=== PATIENT | male | born 1960 | race American Indian/Alaskan Native ===

== ENCOUNTER → 2018-08-06 19:23 | Outpatient (REF) | payer OTHER, SELFPAY ==
[2018-08-06 19:44] LABS: Alanine Aminotransferase 51 IU/L (21-72); Albumin 4.5 g/dL (3.5-5.0); Albumin Globulin Ratio 1.7 (1.0-2.8); Alkaline Phosphatase 71 U/L (38-126); Aspartate Aminotransferase 32 IU/L (17-59); Bilirubin Total 0.5 mg/dL (0.2-1.3); Blood Urea Nitrogen 18 mg/dL (9-20); Calcium 9.2 mg/dL (8.4-10.2); Carbon Dioxide 29 mmol/L (22-32); Chloride 100 mmol/L (98-107); Cholesterol 128 mg/dL (140-199); Estimated Glomerular Filt Rate > 60.0 mL/min (>60); Globulin 2.6 g/dL (1.7-4.1); Glucose 107 mg/dL (70-100); HDL Cholesterol 29 mg/dL (40-60); HEMOLYSIS < 15 (0-50); LDL Cholesterol Calculated 64 mg/dL (<100); Potassium 4.1 mmol/L (3.4-5.1); Sodium 139 mmol/L (137-145); Total Protein 7.1 g/dL (6.3-8.2); Triglycerides 173 mg/dL (35-150)
[2018-08-06 19:46] LABS: Add Manual Diff / Slide Review NO; Basophils Absolute Auto 100 /uL (0-100); Basophils Percent Auto 0.7 % (0-2); Eosinophils Absolute Auto 200 /uL (0-450); Eosinophils Percent Auto 2.8 % (2-4); Hematocrit 46.4 % (41-53); Hemoglobin 15.6 g/dL (13.5-17.5); Lymphocytes Absolute Auto 2200 /uL (1100-4500); Mean Corpuscular HGB Conc 33.6 % (30-36); Mean Corpuscular Hemoglobin 29.7 PG (26-34); Mean Corpuscular Volume 88.6 fL (80-100); Monocytes Absolute Auto 600 /uL (0-900); Monocytes Percent Auto 7.7 % (3-14); Neutrophils Absolute Auto 5200 /uL (1500-7000); Neutrophils Percent Auto 62.8 % (50-75); Platelet Count 220 X10^3/uL (150-400); Red Blood Cell Count 5.24 X10^6/uL (4.5-5.9); Red Cell Distribution Width 14.9 % (11.6-14.8); White Blood Cell Count 8.3 X10^3/uL (4.5-11.0)
== END ==
LOC: LAB 19:23
PROVIDERS: Visit Provider Family Medicine Geriatric Medicine
DX: I10 Essential (primary) hypertension (principal); R73.01 Impaired fasting glucose
CPT/HCPCS: 36415; 80053; 80061; 83036; 85025

== ENCOUNTER 2018-10-19 07:36 | Day surgery (SDC) | payer OTHER, SELFPAY ==
[2018-10-19] VITALS (7 sets, daily range): BP systolic 100–126; BP diastolic 50–69; PULSE 47–61; RESP 12–20; TEMP 36.1–37.2; O2SAT 94–106; BMI 32.7
--- NOTE | 2018-10-19 | PATH_ITS ---
[facility] Accession Number: [id number] . 01 Material submitted: . body - POLYP AT 15 . 02 Diagnosis: Colon, Polyp at 15, Biopsy: Hyperplastic polyp. [facility]/10/20/2018 . 02 Electronically signed: . Mireya Galeana MD, Pathologist NPI- [id number] . 01 Gross description: . POLYP AT 15: Received in formalin are 4 fragment(s) of garibay, soft tissue measuring 0.1 x 0.1 x 0.1 cm to 0.4 x 0.3 x 0.3 cm which is entirely submitted and submitted entirely in 1 cassette(s) /DMC /DMC . 02 Pathologist provided ICD-10: K63.5 . 02 CPT . 388579 Performed at: 01 [facility] [address] [id number] MD Lambert Akins MD Phone: [phone] Performed at: 02 [facility] [address] [place], [place] [id number] MD Mireya Galeana MD Phone: [phone]
[2018-10-19] MEDS: SODIUM CHLORIDE 0.9% 1,000 ML 84 ML IV (08:31)
--- NOTE | 2018-10-19 09:53 | PM.HP.1 ---
History of Present Illness Date Patient Seen: 10/19/18 Time Patient Seen: 09:50 Chief complaint: [id number] SCREENING COLONOSCOPY Narrative: Patient is a gentleman here for screening colonoscopy. Last exam was 5 years ago. He had a polyp removed at that time. Patient History Medical History (Updated 10/19/18 @ 09:55 by Myles Waldrop MD) Coronary artery disease (Chronic) Elevated cholesterol (Chronic) Essential hypertension with goal blood pressure less than 130/85 (Chronic) Surgical History (Updated 10/19/18 @ 09:55 by Myles Waldrop MD) History of coronary artery stent placement (Resolved) Social History household members: none Family & Social History Social History: household members none Meds Home Medications Medication Instructions Recorded Confirmed Type atorvastatin [Lipitor] 80 mg PO QDAY #0 04/28/17 10/19/18 History omeprazole 20 mg PO QDAY #0 04/28/17 10/19/18 History lisinopril-hydrochlorothiazide 1 tab PO QDAY #0 05/04/17 10/19/18 History aspirin 81 mg PO BID #90 05/14/17 10/19/18 Rx hydrocodone-acetaminophen 1 - 2 tab PO Q4HPP PRN #90 tab 06/01/17 10/19/18 Rx metoprolol tartrate 25 mg PO DAILY 10/19/18 10/19/18 History Allergies Allergy/AdvReac Type Severity Reaction Status Date / Time No Known Drug Allergies Allergy Verified 10/19/18 08:34 Review of Systems Review of Systems All systems reviewed & are unremarkable except as noted in HPI and below Cardiovascular Comments: No cardiac symptoms at this time Musculoskeletal Comments: Back arthritis and bilateral knee replacements Exam Vital Signs (past 8 hours): - 10/19/18 08:15 Temperature 97.0 F L Pulse Rate 47 L Respiratory Rate 16 Blood Pressure 111/62 Pulse Oximetry 94 Oxygen Delivery Method Room Air Narrative Exam Narrative: Pleasant cooperative patient no apparent distress. Lungs are clear to auscultation. No rales or rhonchi. Heart regular rate and rhythm no murmur gallop. Abdomen is soft nontender without mass. No obvious hernias. Patient is alert and oriented x3. Assessment & Plan Assessment & Plan narrative: The patient for a screening colonoscopy. I have discussed the procedure with them. Risks of bleeding, perforation which would necessitate major operation, failure to find remove all lesions, the potential tattoo were all discussed. All questions were answered. They wished to proceed.
--- NOTE | 2018-10-19 09:56 | P.HP_ITS ---
History of Present Illness Date Patient Seen: 10/19/18 Time Patient Seen: 09:50 Chief complaint: [id number] SCREENING COLONOSCOPY Narrative: Patient is a gentleman here for screening colonoscopy. Last exam was 5 years ago. He had a polyp removed at that time. Patient History Medical History (Updated 10/19/18 @ 09:55 by Myles Waldrop MD) Coronary artery disease (Chronic) Elevated cholesterol (Chronic) Essential hypertension with goal blood pressure less than 130/85 (Chronic) Surgical History (Updated 10/19/18 @ 09:55 by yMles Waldrop MD) History of coronary artery stent placement (Resolved) Social History household members: none Family & Social History Social History: household members none Meds Home Medications Medication Instructions Recorded Confirmed Type atorvastatin [Lipitor] 80 mg PO QDAY #0 04/28/17 10/19/18 History omeprazole 20 mg PO QDAY #0 04/28/17 10/19/18 History lisinopril-hydrochlorothiazide 1 tab PO QDAY #0 05/04/17 10/19/18 History aspirin 81 mg PO BID #90 05/14/17 10/19/18 Rx hydrocodone-acetaminophen 1 - 2 tab PO Q4HPP PRN #90 tab 06/01/17 10/19/18 Rx metoprolol tartrate 25 mg PO DAILY 10/19/18 10/19/18 History Allergies Allergy/AdvReac Type Severity Reaction Status Date / Time No Known Drug Allergies Allergy Verified 10/19/18 08:34 Review of Systems Review of Systems All systems reviewed & are unremarkable except as noted in HPI and below Cardiovascular Comments: No cardiac symptoms at this time Musculoskeletal Comments: Back arthritis and bilateral knee replacements Exam Vital Signs (past 8 hours): - 10/19/18 08:15 Temperature 97.0 F L Pulse Rate 47 L Respiratory Rate 16 Blood Pressure 111/62 Pulse Oximetry 94 Oxygen Delivery Method Room Air Narrative Exam Narrative: Pleasant cooperative patient no apparent distress. Lungs are clear to auscultation. No rales or rhonchi. Heart regular rate and rhythm no murmur gallop. Abdomen is soft nontender without mass. No obvious hernias. Patient is alert and oriented x3. Assessment & Plan Assessment & Plan narrative: The patient for a screening colonoscopy. I have discussed the procedure with them. Risks of bleeding, perforation which would necessitate major operation, failure to find remove all lesions, the potential tattoo were all discussed. All questions were answered. They wished to proceed.
--- NOTE | 2018-10-19 09:56 | PM.PREOP ---
Pre-operative Note Interval Note History & Physical reviewed/Exam performed by Physician: Yes Changes to H&P: No ASA Class (for procedural sedation): III
[2018-10-19] MEDS: GLUCAGON,HUMAN RECOMBINANT 1 MG/ML VIAL IV (10:07)
[2018-10-19] MEDS: MIDAZOLAM 5 MG/5 ML VIAL IV (10:10)
[2018-10-19] MEDS: fentaNYL 250 MCG/5 ML INJ IV (10:10)
--- NOTE | 2018-10-19 10:24 | PM.OP.ENDO ---
Operative Date/Time/Diagnoses Date of procedure: 10/19/18 Time of procedure: 10:24 Pre-op diagnosis: Screening examination. Last exam 5 years ago. Personal history of polyps. Post-op diagnosis: same (Sigmoid diverticulosis. Small lesions in the rectum may be adenomas) Procedure & Clinicians Study performed: Colonoscopy with cold biopsy Same procedure as scheduled: Yes Indications: Screening Surgeon: Myles Waldrop Procedure Notes SCOAP/Timeout: Performed Procedure in detail: The patient was placed in the left lateral decubitus position and underwent IV sedation directed by the surgeon consisting of fentanyl and Versed. Digital exam was unremarkable. Portion of prostate that I could feel was without mass.. The scope was inserted and advanced into the rectum. There were 3 small polyp like lesions which were biopsied and removed. the scope was then passed through the rectum into the sigmoid, descending, transverse, and ascending colon. Patient had extensive sigmoid diverticulosis.. The cecum was reached identified by the ileocecal valve and the appendiceal opening. There was stool that was adherent to the surface of the cecum. I was able to irrigate some of it off. There was still small areas that were not well seen. No large polyps were in the as areas. The scope was gradually brought out. No other Polyps were found. The scope ultimately was retroflexed in the rectum. The appearance was[]. The scope was removed and the patient tolerated the procedure well Scope withdrawal time: Eight in a 1/2 minutes Sedation minutes: 26 Findings: diverticulosis (Sigmoid) and polyp (Rectal) Specimen(s): other (Rectal polyps) Complications: none Recommendations: Colonscopy in 5 years (Due to history of polyps) Follow up: as needed Disposition: PACU
== END 2018-10-19 11:38 | disposition home or self-care (01) ==
PROVIDERS: PCP Family Medicine Geriatric Medicine; Visit Provider Specialist
PROC: 0DJD8ZZ Inspection of Lower Intestinal Tract, Via Natural or Artificial Opening Endoscopic (ICD-10-PCS; CPT 45378; principal; 2018-10-19 09:45)
DX: Z86.010 Personal history of colon polyps (principal); K57.30 Diverticulosis of large intestine without perforation or abscess without bleeding; I25.10 Atherosclerotic heart disease of native coronary artery without angina pectoris; E78.00 Pure hypercholesterolemia, unspecified; I10 Essential (primary) hypertension; K63.5 Polyp of colon
CPT/HCPCS: 45380; 99152; 99153; J1610; J2250; J3010

== ENCOUNTER → 2019-08-24 09:46 | Outpatient (CLI) | payer OTHER, SELFPAY ==
--- NOTE | 2019-08-24 | DI.NM.S_ITS ---
PROCEDURE: NM BONE 3 PHASE RADIOPHARMACEUTICAL: 20.3 mCi Tc-99m MDP IV. INDICATIONS: Presence of right artificial knee joint TECHNIQUE: Multiple bone scintigrams were obtained after intravenous injection of Tc-99m MDP, including flow, blood pool, and delayed images centered to the region of interest. COMPARISON: [facility], CR, XR BONE LENGTH SCANOGRAM, 04/14/2017, 13:05. [facility], CR, KNEE 1-2 VIEWS RIGHT, 05/13/2017, 18:19. [facility], CR, XR KNEE 3 VIEWS RIGHT, 07/19/2019, 14:25. FINDINGS: There is no abnormal blood flow or blood pool asymmetry involving the knee region on the right, in this patient with asymmetric right-sided pain and prior bilateral right and left knee arthroplasty procedures. On the delayed bone scan imaging, however, there is a slight degree of asymmetric increased isotope deposition within the osseous elements of the right knee, when compared to that on the left. IMPRESSION: Minimal asymmetric increased isotope deposition within the osseous elements of the right knee adjacent to the femoral and tibial components of the right knee arthroplasty. The left knee arthroplasty is similar in appearance on prior plain film imaging and by current examination shows a slightly lesser degree of isotope deposition. No abnormal elevated blood flow or blood pool imaging. Infection is considered a low likelihood for cause of this mild asymmetry. Continued clinical followup is anticipated. Dictated by: Tj Jo M.D. on 08/24/2019 at 14:14 Approved by: Tj Jo M.D. on 08/24/2019 at 14:19
== END ==
PROVIDERS: Referring Provider Orthopaedic Surgery; Visit Provider Orthopaedic Surgery
DX: M25.561 Pain in right knee (principal); Z96.653 Presence of artificial knee joint, bilateral
CPT/HCPCS: 78315; A9503

== ENCOUNTER 2020-08-09 09:45 | Day surgery (SDC) | payer OTHER, SELFPAY ==
[2020-08-09] VITALS (7 sets, daily range): BP systolic 95–126; BP diastolic 66–78; PULSE 57–81; RESP 11–22; TEMP 36–36.4; O2SAT 92–97; BMI 35.9
--- NOTE | 2020-08-09 | PATH_ITS ---
[facility] Accession Number: [id number] . 01 Material submitted: . PART A: colon - POLYP AT 30 CM PART B: colon - ASCENDING COLON PART C: colon - TRANSVERSE COLON 120 CM PART D: colon - POLYPS AT 80 CM PART E: colon - POLYPS AT 55 CM PART F: colon - POLYPS AT 20 CM . 01 Clinical history: . SCREENING COLONOSCOPY . 02 Diagnosis: A. Colon Polyp at 30 cm, Biopsy: Tubular adenoma. . B. Ascending Colon, Biopsy: Tubular adenoma in one of four fragments. . C. Transverse Colon, 120 cm, Biopsy: Tubular adenoma in four of four fragments. . D. Colon, Polyps at 80 cm, Biopsies: Tubular adenomas, three fragments. . E. Colon, Polyp at 55 cm, Biopsies: Hyperplastic polyps, three fragments. . F. Colon, Polyps at 20 cm, Biopsy: Tubular adenoma in one of six fragments. Hyperplastic polyp in four fragments. Benign lymphoid aggregate in one fragment. Two fragments with benign xanthomatous changes. [facility] 08/13/2020 0933 Local . 02 Electronically signed: . Mireya Galeana MD, Pathologist NPI- [id number] . 01 Gross description: . Part A: POLYP AT 30 CM: Received in formalin are 4 fragment(s) of garibay, soft tissue measuring 0.1 x 0.1 x 0.1 cm to 0.3 x 0.3 x 0.3 cm submitted entirely in 1 cassette(s) Part B: ASCENDING COLON: Received in formalin are multiple fragment(s) of garibay, soft tissue measuring 0.1 x 0.1 x 0.1 cm to 0.4 x 0.3 x 0.2 cm submitted entirely in 1 cassette(s) Part C: TRANSVERSE COLON 120 CM: Received in formalin are 4 fragment(s) of garibay, soft tissue measuring 0.2 x 0.2 x 0.2 cm to 0.7 x 0.3 x 0.3 cm submitted entirely in 1 cassette(s) Part D: POLYPS AT 80 CM: Received in formalin are 3 fragment(s) of garibay, soft tissue measuring 0.3 x 0.3 x 0.3 cm to 0.6 x 0.6 x 0.5 cm submitted entirely in 1 cassette(s) Part E: POLYPS AT 55 CM: Received in formalin are 3 fragment(s) of garibay, soft tissue measuring 0.2 x 0.2 x 0.2 cm to 0.3 x 0.2 x 0.2 cm submitted entirely in 1 cassette(s) Part F: POLYPS AT 20 CM: Received in formalin are multiple fragment(s) of garibay, soft tissue measuring 0.1 x 0.1 x 0.1 cm to 0.3 x 0.2 x 0.2 cm submitted entirely in 1 cassette(s) /[facility] 08/10/2020 0112 Local . 02 Pathologist provided ICD-10: D12.2, D12.3, D12.6 . 02 CPT . 734513, 052397, 139316, 122482, 411826, 770095 Performed at: 01 [facility] [address] [id number] MD Lambert Akins MD Phone: [phone] Performed at: 02 [facility] [address] [place], [place] [id number] MD Mireya Galeana MD Phone: [phone]
[2020-08-09] MEDS: LACTATED RINGERS 1,000 ML 200 ML IV (10:28)
--- NOTE | 2020-08-09 11:27 | PM.HP.1 ---
History of Present Illness History of Present Illness Date Patient Seen: 08/09/20 Time Patient Seen: 11:27 Chief complaint: SCREENING COLONOSCOPY Narrative: Patient is a gentleman who has a history of polyps. Last exam was 5 years ago. Patient History Medical History Coronary artery disease Elevated cholesterol Essential hypertension with goal blood pressure less than 130/85 Surgical History (Updated 08/09/20 @ 11:28 by Myles Waldrop MD) History of coronary artery stent placement Total knee replacement status Family & Social History Social History: household members none Tobacco & Substance use: Smoking Status Former smoker alcohol intake never Substance Use Type painkillers Meds Home Medications and Allergies Home Medications Medication Instructions Recorded Confirmed Type atorvastatin [Lipitor] 80 mg PO QDAY #0 04/28/17 08/09/20 History omeprazole 20 mg PO QDAY #0 04/28/17 08/09/20 History lisinopril-hydrochlorothiazide 1 tab PO QDAY #0 05/04/17 08/09/20 History aspirin 81 mg PO BID #90 05/14/17 08/09/20 Rx hydrocodone-acetaminophen 1 - 2 tab PO Q4HPP PRN #90 tab 06/01/17 08/09/20 Rx metoprolol tartrate 25 mg PO DAILY 10/19/18 08/09/20 History sertraline 40 mg PO DAILY 08/09/20 08/09/20 History terbinafine HCl 250 mg PO DAILY 08/09/20 08/09/20 History Allergies Allergy/AdvReac Type Severity Reaction Status Date / Time No Known Drug Allergies Allergy Verified 10/19/18 08:34 Review of Systems Review of Systems Narrative: Patient has sleep apnea and uses a machine. He did not bring it with him. Patient has chronic joint problems and has had knee replacements. Patient had cardiac stents placed in 2016 and has been asymptomatic since. Patient has elevated cholesterol. He has reflux. ROS: Yes All systems reviewed with the patient and are negative except as otherwise documented Exam Vital Signs (past 8 hours): - 08/09/20 10:04 Temperature 97.1 F L Pulse Rate 81 Respiratory Rate 20 Blood Pressure 126/78 Pulse Oximetry 96 Oxygen Delivery Method Room Air Narrative Exam Narrative: Pleasant cooperative patient no apparent distress. Lungs are clear to auscultation. No rales or rhonchi. Heart regular rate and rhythm no murmur gallop. Abdomen is soft morbidly obese and nontender without mass. No obvious hernias. Patient is alert and oriented x3.
--- NOTE | 2020-08-09 11:30 | PM.PREOP ---
Pre-operative Note COVID-19 COVID-19 status: Negative Result date/Date tested (Pos, Neg/Pending): 08/06/20 Interval Note History & Physical reviewed/Exam performed by Physician: Yes Changes to H&P: No ASA Class (for procedural sedation): III
[2020-08-09] MEDS: fentaNYL 250 MCG/5 ML INJ IV (11:41)
[2020-08-09] MEDS: MIDAZOLAM 5 MG/5 ML VIAL IV (11:41)
--- NOTE | 2020-08-09 12:11 | P.OP.ENDO_ITS ---
Operative Date/Time/Diagnoses Date of procedure: 08/09/20 Time of procedure: 12:11 Pre-op diagnosis: History of polyps. Last colonoscopy 5 years ago. Post-op diagnosis: same (Multiple polyps. Extensive sigmoid diverticulosis.) Procedure & Clinicians Study performed: Colonoscopy with cold biopsy and hot snare polypectomy Same procedure as scheduled: Yes Indications: Screening exam in a high risk patient. Surgeon: Myles Waldrop Procedure Notes SCOAP/Timeout: Perform Procedure in detail: The patient was placed in the left lateral decubitus position and underwent IV sedation directed by the surgeon consisting of petr mercado and Noe. Digital exam was unremarkable. Sphincter tone was slightly increased. I could not feel his prostate due to his anatomy in the length of my finger.. The scope was inserted and advanced through the rectum into the sigmoid, descending, transverse, and ascending colon. Patient was noted to have extensive sigmoid diverticulosis. A small polyp was noted at 30 cm from the anal verge and it was biopsied and completely removed. Pressure was applied and The cecum was reached identified by the ileocecal valve and the appendiceal opening. The scope was gradually brought out. Polyps were found at the ascending colon, transverse colon at 120 cm, 80 cm, 55 cm, and 20 cm, 2 of these polyps were hot snared. The others were removed with biopsy forceps. Only 1 of them approach to cm in size. The others were all small. All appeared to be completely removed.. The scope ultimately was retroflexed in the rectum. The appearance was unremarkable. The scope was removed and the patient tolerated the procedure well. The prep was very good. Scope withdrawal time: 10 minutes (27 minutes total) Sedation minutes: 36 Findings: diverticulosis and polyp Specimen(s): other (Multiple polyps) Complications: none Post-procedure Recommendations: Colonscopy in 5 years, High fiber diet and Start medication(s) (Metamucil) Follow up: as needed Disposition: PACU
== END 2020-08-09 12:58 | disposition home or self-care (01) ==
PROVIDERS: Referring Provider Specialist; Visit Provider Specialist
PROC: 0DJD8ZZ Inspection of Lower Intestinal Tract, Via Natural or Artificial Opening Endoscopic (ICD-10-PCS; CPT 45378; principal; 2020-08-09 10:00)
DX: Z12.11 Encounter for screening for malignant neoplasm of colon (principal); Z86.010 Personal history of colon polyps; I10 Essential (primary) hypertension; E78.00 Pure hypercholesterolemia, unspecified; I25.10 Atherosclerotic heart disease of native coronary artery without angina pectoris; G47.30 Sleep apnea, unspecified; K21.9 Gastro-esophageal reflux disease without esophagitis; K57.30 Diverticulosis of large intestine without perforation or abscess without bleeding; D12.6 Benign neoplasm of colon, unspecified; D12.2 Benign neoplasm of ascending colon; D12.3 Benign neoplasm of transverse colon
CPT/HCPCS: 45385; 45380; 99152; 99153; J2250; J3010

== ENCOUNTER 2020-12-06 13:09 | Outpatient (CLI) | payer OTHER, SELFPAY ==
[2020-12-06] VITALS (9 sets, daily range): BP systolic 119–149; BP diastolic 64–83; PULSE 54–60; RESP 12–22; TEMP 36.9; O2SAT 95–98
--- NOTE | 2020-12-06 13:11 | DI.RAD.S_ITS ---
PROCEDURE: PAIN L INTERLAMINAR/CAUDAL INJ INDICATIONS: SPONDYLOSIS COMPARISON: Outside [facility], RG, XR L-SPINE 2-3V, 10/11/2020, 14:54. FINDINGS: Fluoroscopic spot filming was performed to verify placement of a spinal needle at the L4-L5 level, as labeled on the films. Appropriate location of the needle tip was confirmed by injection of iodinated contrast. IMPRESSION: Intraprocedural examination within normal limits. Dictated by: Brody Valenzuela M.D. on 12/06/2020 at 13:42 Approved by: Brody Valenzuela M.D. on 12/06/2020 at 13:42
[2020-12-06] MEDS: MIDAZOLAM 5 MG/5 ML VIAL IV (13:48)
[2020-12-06] MEDS: fentaNYL 100 MCG/2 ML INJ 50 MCG IV (13:48)
[2020-12-06] MEDS: IOPAMIDOL 15 ML VIAL 3 ML INJ (13:52)
[2020-12-06] MEDS: BUPIVACAINE 0.25% (PF) VIAL 2 ML INJ (13:52)
[2020-12-06] MEDS: BETAMETHASONE 30 MG/5 ML MDV 6 MG INJ (13:52)
[2020-12-06] MEDS: DEXAMETHASONE 10 MG/ML VIAL 20 MG INJ (13:53)
--- NOTE | 2020-12-06 14:00 | P.PCN_ITS ---
Date/Time/Diagnoses Date of procedure: 12/06/20 Time of procedure: 14:00 Pre-procedure diagnosis: 1. HNP WITH RADICULAR FEATURES, 2. MULTILEVEL CENTRAL STENOSIS, Post-procedure diagnosis: same Procedure Notes Procedure: 1. FLUOROSCOPICALLY GUIDED CONTRAST CONTROLLED INTERLAMINAR EPIDURAL STEROID INJECTION -L4/5 Indications: Caesar is referred by Dr. Vick for treatment of Bilateral Foraminal Stenosis R>L LE symptoms. Physician: Alex Du Total Fluoroscopy time (seconds): 7 Total sedation minutes: 9 Complications: none Procedure in detail & Post-procedure care: FINDINGS Multilevel Central Spinal Stenosis with Nerve Root Compression DESCRIPTION OF PROCEDURE Fluoroscopically guided, contrast-controlled L4/5 translaminar epidural steroid injection. Following review of allergy and review of potential side effects and complications, including, but not necessarily limited to, infection, allergic reaction, local tissue breakdown, temporary as well as permanent nerve injury, paralysis, stroke and possible , the patient indicated that the patient understood and agreed to proceed. An informed consent document was signed by the patient, witnessed by a nurse, and placed in the patient's chart. Additionally, other treatment options including modalities, medications, and physical therapy were reviewed with the patient. After review of previous anaesthesic history and IV conscious sedation the patient was deemed safe to proceed with today?s procedure with IV conscious sedation as ASA class II designation. Safety time-out was performed to confirm patient ID, procedure to be performed and site of procedure. IV sedation was accomplished with a combination of 2mg of Versed and 50mcg of Fentanyl was administered by the RN after DO order, titrated to patient comfort during the course of the procedure while the patient remained responsive to all verbal commands In the prone position, following sterile prep and drape of the lumbar region, the L4/5 translaminar space was identified fluoroscopically. The skin was anesthetized via a 25-gauge, 1.5inch needle with 1% lidocaine solution. At this point, a 22-gauge short bevel spinal needle was atraumatically introduced and advanced under fluoroscopic guidance into the region of the L4/5 translaminar space. Depth was confirmed on lateral view. Radiological data, including multiple fluoroscopic views of the lumbar spine, reveal a spinal needle at the L4/5 translaminar space. Lateral views then show placement of the needle in the epidural space. Subsequent views show contrast material flowing superiorly and inferiorly in the epidural space. No vascular or intrathecal uptake is observed. At this point, using loss of resistance technique with saline and air, the epidural space was entered. This was confirmed following negative aspiration with injection of approximately 1.5cc of Isovue 200, showing excellent epidural flow without vascular or intrathecal uptake. At this point, 1cc of 1% lidocaine solution combined with 3cc or 20mg of dexamethasone and 6mg betamethasone was injected without incident. The patient tolerated the procedure well without signs or symptoms of complic ations prior to transfer to the recovery area continued monitoring without incident. The patient was then transferred to the recovery area where they were observed for an appropriate period of time after the injection. The patient reported a VAS score of 6 prior to the procedure and a post- procedure VAS of 0. POST OP INSTRUCTIONS The patient was provided a Pain Log to continue to record their response to the target-specific procedure prior to follow-up visit with their referring physician. Additionally, specific post-injection care instructions and a contact number to our office were provided if concerns arise regarding possible complications associated with the procedure are suspected.
== END 2020-12-06 14:25 | disposition home or self-care (01) ==
LOC: RAD 13:09
PROVIDERS: PCP Family Medicine; Referring Provider Physical Medicine & Rehabilitation; Visit Provider Physical Medicine & Rehabilitation
DX: M51.16 Intervertebral disc disorders with radiculopathy, lumbar region (principal); M48.061 Spinal stenosis, lumbar region without neurogenic claudication
CPT/HCPCS: 62323; J0702; J1100; J2250; J3010

== ENCOUNTER 2021-03-21 10:09 | Outpatient (CLI) | payer OTHER, SELFPAY ==
[2021-03-21] VITALS (8 sets, daily range): BP systolic 117–133; BP diastolic 63–82; PULSE 55–64; RESP 12–20; TEMP 36.6–36.8; O2SAT 96–99
--- NOTE | 2021-03-21 10:11 | DI.RAD.S_ITS ---
PROCEDURE: PAIN L INTERLAMINAR/CAUDAL INJ INDICATIONS: SPONDYLOSIS COMPARISON: [facility], XA, PAIN L INTERLAMINAR/CAUDAL INJ, 12/06/2020, 13:49. FINDINGS: Fluoroscopic spot filming was performed to verify placement of a spinal needle at the L2-L3 level, as labeled on the films. Appropriate location of the needle tip was confirmed by injection of iodinated contrast. IMPRESSION: Intraprocedural examination within normal limits. Dictated by: Brody Valenzuela M.D. on 03/21/2021 at 10:42 Approved by: Brody Valenzuela M.D. on 03/21/2021 at 10:42
[2021-03-21] MEDS: fentaNYL 100 MCG/2 ML INJ 50 MCG IV (11:10)
[2021-03-21] MEDS: MIDAZOLAM 5 MG/5 ML VIAL IV (11:10)
[2021-03-21] MEDS: IOPAMIDOL 15 ML VIAL 3 ML INJ (11:13)
[2021-03-21] MEDS: BUPIVACAINE 0.25% (PF) VIAL 2 ML INJ (11:13)
[2021-03-21] MEDS: BETAMETHASONE 30 MG/5 ML MDV 12 MG INJ (11:13)
[2021-03-21] MEDS: DEXAMETHASONE 10 MG/ML VIAL 20 MG INJ (11:14)
--- NOTE | 2021-03-21 11:17 | P.PCN_ITS ---
Date/Time/Diagnoses Date of procedure: 03/21/21 Time of procedure: 11:17 Pre-procedure diagnosis: 1. HNP WITH RADICULAR FEATURES, 2. MULTILEVEL CENTRAL STENOSIS, Post-procedure diagnosis: same Procedure Notes Procedure: 1. FLUOROSCOPICALLY GUIDED CONTRAST CONTROLLED INTERLAMINAR EPIDURAL STEROID INJECTION - L2/3 Indications: Caesar is referred by Dr. Vick for treatment of Bilateral Foraminal Stenosis L>R LE symptoms. Physician: Alex Du Total Fluoroscopy time (seconds): 5 Total sedation minutes: 4 Complications: none Procedure in detail & Post-procedure care: FINDINGS Multilevel Central Spinal Stenosis with Nerve Root Compression DESCRIPTION OF PROCEDURE Fluoroscopically guided, contrast-controlled L2/3 translaminar epidural steroid injection. Following review of allergy and review of potential side effects and complications, including, but not necessarily limited to, infection, allergic reaction, local tissue breakdown, temporary as well as permanent nerve injury, paralysis, stroke and possible , the patient indicated that the patient understood and agreed to proceed. An informed consent document was signed by the patient, witnessed by a nurse, and placed in the patient's chart. Additionally, other treatment options including modalities, medications, and physical therapy were reviewed with the patient. After review of previous anaesthesic history and IV conscious sedation the patient was deemed safe to proceed with today?s procedure with IV conscious sedation as ASA class II designation. Safety time-out was performed to confirm patient ID, procedure to be performed and site of procedure. IV sedation was accomplished with a combination of 2mg Versed and 50mcg of Fentanyl administered by the RN after DO order, titrated to patient comfort during the course of the procedure while the patient remained responsive to all verbal commands. In the prone position, following sterile prep and drape of the lumbar region,the L2/3 translaminar space was identified fluoroscopically. The skin was anesthetized via a 25-gauge, 1.5-inch needle with 1% lidocaine solution. At this point, a 22-gauge short bevel spinal needle was atraumatically introduced and advanced under fluoroscopic guidance into the region of the L2/3 translaminar space. Depth was confirmed on lateral view. Radiological data, including multiple fluoroscopic views of the lumbar spine, reveal a spinal needle at the L2/3 translaminar space. Lateral views then show placement of the needle in the epidural space. Subsequent views show contrast material flowing superiorly and inferiorly in the epidural space. No vascular or intrathecal uptake is observed. At this point, using loss of resistance technique with saline and air, the epidural space was entered. This was confirmed following negative aspiration with injection of approximately 1.5 cc of Isovue 200, showing excellent epidural flow without vascular or intrathecal uptake. At this point, 1 cc of 1% lidocaine solution combined with 4cc or 20mg of dexamethasone and 12mg of betamethasone was injected without incident. The patient tolerated the procedure well without signs or symptoms of complica tions prior to transfer to the recovery area continued monitoring without incident. The patient was then transferred to the recovery area where they were observed for an appropriate period of time after the injection. The patient reported a VAS score of 6 prior to the procedure and a post-procedure VAS of 0. POST OP INSTRUCTIONS The patient was provided a Pain Log to continue to record their response to the target-specific procedure prior to follow-up visit with their referring physician. Additionally, specific post-injection care instructions and a contact number to our office were provided if concerns arise regarding possible complications associated with the procedure are suspected.
== END 2021-03-21 11:44 | disposition home or self-care (01) ==
LOC: RAD 10:11
PROVIDERS: PCP Family Medicine; Referring Provider Physical Medicine & Rehabilitation; Visit Provider Physical Medicine & Rehabilitation
DX: M51.16 Intervertebral disc disorders with radiculopathy, lumbar region (principal); M48.061 Spinal stenosis, lumbar region without neurogenic claudication
CPT/HCPCS: 62323; J0702; J1100; J2250; J3010